=== PATIENT | female | born 1930 | race Caucasian/White ===

== ENCOUNTER 2016-10-20 16:04 | Inpatient (IN) | payer MEDICARE ==
[2016-10-20] MEDS ORDERED: MORPHINE SULFATE 2 MG/ML SYR ONE ×2 (16:30→16:56)
[2016-10-20] MEDS ORDERED: HOME MEDICATION LIST NEEDED 1 EA EACH MC ONE (17:27)
[2016-10-20] MEDS ORDERED: MORPHINE SULFATE 4 MG/ML SYR IV PRN ×2 (17:29→20:57)
[2016-10-20 17:47] LABS: BASOPHIL# 0.2 X 10^3uL (0.0-0.1); BASOPHILS 2.1 % (0.0-2.0); EOSINOPHILS 3.3 % (0.0-6.0); EOSINOPHILS# 0.4 X 10^3uL (0.0-0.4); HEMATOCRIT 41.1 % (36.0-48.0); HEMOGLOBIN 13.7 g/dL (12.0-16.0); LYMPHOCYTES 27.5 % (20.0-40.0); MEAN CELL VOLUME 90.5 fL (80.0-100.0); MEAN CORPUS. HGB CONCENTRATION 33.3 g/dL (32.0-36.0); MEAN CORPUSCULAR HEMOGLOBIN 30.2 pg (29.0-35.0); MEAN PLATELET VOLUME 8.2 fL (7.4-10.4); MONOCYTES 6.7 % (2.0-10.0); MONOCYTES# 0.7 X 10^3uL (0.2-1.0); NEUTROPHILS 60.4 % (54.0-75.0); NEUTROPHILS# 6.5 X 10^3uL (2.6-6.7); PLATELET COUNT 189 X 10^3uL (130-440); RED BLOOD COUNT 4.54 X 10^6uL (4.20-6.10); WHITE BLOOD COUNT 10.8 X 10^3uL (3.9-10.7)
[2016-10-20 17:56] LABS: BLOOD UREA NITROGEN 40 mg/dL (7-17); CALCIUM 8.9 mg/dL (8.4-10.2); CHLORIDE 111 mmol/L (98-107); CREATININE 1.2 mg/dL (0.5-1.0); GLUCOSE 110 mg/dL (70-100); POTASSIUM 4.1 mmol/L (3.5-5.1); SODIUM 140 mmol/L (137-145)
[2016-10-20 17:57] LABS: INR 1.1
--- NOTE | 2016-10-20 18:23 | ER NURSING DOCUMENTATION ---
Nurse's Notes [facility] Name:Jolene Castro Age:86 yrs Sex:Female :1930 Arrival Date:10/20/2016 Time:16:04 Bed6 Private MD:Prasad Hammer Diagnosis:Intertrochanteric Hip Fracture Presentation: 10/20 16:08 Presenting complaint: Patient states: mechanical ground level fall; right hip pain. nf Transition of care: patient was not received from another setting of care. Notified ED Physician of patient's arrival and CC Herbert Harrington notified. 16:08 Acuity: HUMAIRA 2 nf 16:08 Method Of Arrival: EMS: 410 nf 16:12 Care prior to arrival: Saline lock initiated. nf Triage Assessment: 16:10 General: Appears in no apparent distress, well nourished, well groomed, Behavior is nf pleasant. 16:10 Pain: Complains of pain in right hip and right femoral area Pain does not radiate. nf Neuro: No deficits noted. Cardiovascular: strong bilateral pedal pulses, both marked Rhythm is regular. Respiratory: No deficits noted. Breath sounds are clear bilaterally. GI: No deficits noted. Denies nausea, vomiting. Musculoskeletal: Circulation, motion, and sensation intact Capillary refill < 3 seconds Range of motion limited in right lower extremity other no obvious deformity; leg bent at hip and knee for comfort - worsening pain with movement of leg Tenderness present in right femoral area and right hip Denies. Injury Description: blunt trauma/mechanical ground level fall. Historical: - Allergies: PENICILLINS; - Home Meds: 1. Cerefolin oral 2. clopidogrel oral 3. losartan oral 4. Potassium Chloride Oral 5. Omeprazole Oral 6. levothyroxine oral 7. aspirin 81 mg oral tab once daily 8. flaxseed oil oral 9. Vitamin D Oral 10. iron 11. eye drops - PMHx: TIA; Hypertension; THYROID PROBLEM; - PSHx: toes; stents in eyes; - Tetanus: unknown. - Ebola Screening: : No symptoms or risks identified at this time. . - Immunization history: Flu Vaccine < 1 year. - Social history: Smoking status: Patient states was never smoker of tobacco. Patient uses alcohol occasionally. Screenin:11 Infectious Disease Risk None. Abuse screen: Denies threats or abuse. Nutritional nf screening: No deficits noted. Assessment: 16:11 See Triage Assessment done by same RN. nf Vital Signs: 16:11 BP 149 / 67; Pulse 73; Resp 16; Temp 98.0(O); Pulse Ox 96% on R/A; Weight 68.04 kg; nf Height 5 ft. 6 in. (167.64 cm); Pain 5/10; 17:30 BP 162 / 68; Pulse 63; Resp 12; Pulse Ox 99% on 2 lpm NC; Pain 3/10; nf 16:11 Body Mass Index 24.21 (68.04 kg, 167.64 cm) nf ED Course: 16:05 Patient arrived in ED. arc 16:05 Prasad Hammer is Private Physician. arc 16:07 Presley Godinez MD is Attending Physician. 16:08 Juana Delgado, RN is Primary Nurse. nf 16:09 Triage completed. nf 16:11 Arm band placed on Bed in low position Call Light in Reach Gowned HOB Elevated Side nf rails up x1. Family accompanied patient. 16:11 Valuables Remains with patient. Door closed. Noise minimized. Lights dimmed. Moved to private room. Verbal reassurance given. Warm blanket given. Pillow given. position of comfort. Diet: Patient is NPO. 16:30 Pulse ox on. NIBP On - RN Monitoring Only. nf 16:31 Oxygen Oxygen administration via nasal cannula @ 2L/min. nf 17:12 EKG done. (by ED staff). Reviewed by Presley Godinez MD. arc 17:25 Cristina Arreola MD is Admitting Physician. 17:33 Port Xray Completed. pm1 17:34 EKG attached nf 17:39 EKG attached nf 17:45 Labs drawn. By EMS Sent per order to lab. nf 17:45 Morin cath inserted Patient tolerated well inserted by [facility] nurse Kamilla. nf Administered Medications: 16:30 Drug: morphine 2 mg; Route: IVP; Site: left hand; nf 16:53 Follow up: Response: No change in condition nf 16:52 Drug: morphine 2 mg; Route: IVP; Site: left hand; nf 17:25 Follow up: Response: Pain is decreased nf Outcome: 17:27 Decision to Admit by Provider. 17:55 Admitted to Med/surg accompanied by nurse, family with patient, via stretcher, with nf oxygen, with chart. 17:55 Condition: stable 17:55 Report given to Emiliano Nelson RN, bedside report 17:55 Discharge Assessment: Patient awake, alert and oriented x 3. No cognitive and/or functional deficits noted. Patient verbalized understanding of disposition instructions. 17:55 Discharge instructions given to patient, family, Instructed on need to admit Demonstrated understanding of instructions, surgery expected tomorrow 18:22 Patient left the ED. nf Signatures: Juana Delgado RN RN Presley Miller MD MD jm McBride, Philisha pm1 Meenu Mcmanus, Ivan Reg arc
--- NOTE | 2016-10-20 18:23 | ER PHYSICIAN DOCUMENTATION ---
Physician Documentation [facility] Name:Jolene Castro Age:86 yrs Sex:Female :1930 Arrival Date:10/20/2016 Time:16:04 Bed6 Private MD:Prasad Hammer ED, John Disposition: 10/20/16 17:27 Admit ordered for Cristina Arreola. Preliminary diagnosis is Intertrochanteric Hip Fracture. - Bed requested for Medical/Surgical. - Condition is Fair. - Problem is new. - Symptoms are unchanged. 23 HR OBS Yes HPI: 10/20 16:13 This 86 yrs old Female presents to ER via EMS with complaints of Hip Injury. talisha 16:13 The patient or guardian reports an injury, pain. sustained from a fall, while walking. talisha The complaints affect the right femoral area and right hip. Onset: The symptom(s)/episode began/occurred just prior to arrival. Modifying factors: the symptoms are aggravated by any movement. Associated signs and symptoms: Pertinent negatives: abdominal pain, chest pain. Severity of symptoms: in the emergency department the symptoms are unchanged. The patient has not experienced similar symptoms in the past. The patient has not recently seen a physician. Pt slipped and fell on gravel while walking to her mailbox. . Historical: - Allergies: PENICILLINS; - Home Meds: 1. Cerefolin oral 2. clopidogrel oral 3. losartan oral 4. Potassium Chloride Oral 5. Omeprazole Oral 6. levothyroxine oral 7. aspirin 81 mg oral tab once daily 8. flaxseed oil oral 9. Vitamin D Oral 10. iron 11. eye drops - PMHx: TIA; Hypertension; THYROID PROBLEM; - PSHx: toes; stents in eyes; - Tetanus: unknown. - Ebola Screening: : No symptoms or risks identified at this time. . - Immunization history: Flu Vaccine < 1 year. - Social history: Smoking status: Patient states was never smoker of tobacco. Patient uses alcohol occasionally. ROS: 16:16 Constitutional: Negative for fever. jm 16:16 ENT: Negative for rhinorrhea, sinus congestion, sinus pain, sore throat. 16:16 Neck: Negative for rash. 16:16 Cardiovascular: Negative for chest pain, palpitations. 16:16 Respiratory: Negative for cough, shortness of breath. 16:16 Abdomen/GI: Negative for abdominal pain. 16:16 Back: Negative for injury or acute deformity. 16:16 MS/extremity: Positive for injury or acute deformity, decreased range of motion, of the right hip and right femoral area. 16:16 Skin: Negative for abscesses, avulsion. 16:16 Neuro: Negative for numbness, tingling. Exam: 16:16 Constitutional: The patient appears alert, awake. 16:16 Eyes: Periorbital structures: appear normal, Conjunctiva: normal. 16:16 ENT: Nose: is normal, Voice: is normal. 16:16 Neck: C-spine: appears grossly normal, vertebral tenderness, is not appreciated, Trachea: is midline with no obvious abnormalities. 16:16 Cardiovascular: Rate: normal, Rhythm: regular. 16:16 Respiratory: Respirations: normal, Breath sounds: are normal. 16:16 Abdomen/GI: Bowel sounds: normal, Palpation: abdomen is soft and non-tender. 16:16 Back: CVA tenderness, is absent, vertebral tenderness, is not appreciated. 16:16 Musculoskeletal/extremity: Extremities: grossly normal except: noted in the right hip: decreased ROM, pain, tenderness, ROM: limited active range of motion due to pain, limited passive range of motion due to pain, in the right hip, Pulses: are normal with no appreciated deficits, Sensation intact. 16:16 Skin: Appearance: Color: pink, injury, is not appreciated. 16:16 Neuro: Mentation: is normal, Memory: is normal. 16:16 Psych: Behavior/mood is pleasant, cooperative, Affect is calm. Vital Signs: 16:11 BP 149 / 67; Pulse 73; Resp 16; Temp 98.0(O); Pulse Ox 96% on R/A; Weight 68.04 kg; nf Height 5 ft. 6 in. (167.64 cm); Pain 5/10; 17:30 BP 162 / 68; Pulse 63; Resp 12; Pulse Ox 99% on 2 lpm NC; Pain 3/10; nf 16:11 Body Mass Index 24.21 (68.04 kg, 167.64 cm) nf MDM: 16:07 Patient medically screened. 16:24 Differential diagnosis: hip fracture. Data reviewed: vital signs, nurses notes, old medical records, lab test result(s), radiologic studies. 17:23 Data reviewed: and as a result, I will admit patient. Test interpretation: by ED jm physician or midlevel provider: plain radiologic studies, ECG. Counseling: I had a detailed discussion with the patient and/or guardian regarding: the historical points, exam findings, and any diagnostic results supporting the discharge/admit diagnosis, lab results, radiology results, the need for further work-up and treatment in the hospital. ECG:. Physician consultation: Cristina Arreola MD regarding admission, and will see patient immediately, later today. ED course: Pt w intratrochanteric hip fx on the R that will need surgery. Dr. Whitley updated and he or Dr. Payan will see pt in the AM. Dr Arreola will admit and clear for surgery. . 17:34 EKG attached nf 17:39 EKG attached nf 10/20 17:50 Order name: CBC AUTO DIF, MDIF/RMOR IF IND; Complete Time: 18:37 EDMS 10/20 17:57 Order name: BASIC METABOLIC PANEL; Complete Time: 18:37 EDMS 10/20 17:58 Order name: PROTIME/INR; Complete Time: 18:37 EDMS 10/20 16:07 Order name: Pulse Ox Continuous; Complete Time: 16:15 10/20 16:16 Order name: Oxygen; Complete Time: 16:16 nf 10/20 17:03 Order name: EKG - 12 Lead; Complete Time: 17:03 nf 10/20 17:32 Order name: Morin; Complete Time: 17:32 nf EC:23 Rhythm is irregular with Left bundle branch block. QRS interval is normal. QT interval jm is normal. No Q waves. T waves are Normal. No ST changes noted. Dispensed Medications: 16:30 Drug: morphine 2 mg; Route: IVP; Site: left hand; nf 16:53 Follow up: Response: No change in condition nf 16:52 Drug: morphine 2 mg; Route: IVP; Site: left hand; nf 17:25 Follow up: Response: Pain is decreased nf Signatures: Juana Delgado RN RN Presley Miller MD MD jm
[2016-10-20] MEDS ORDERED: NORMAL SALINE 250 ML IV ONE ×2 (18:58→20:43)
--- NOTE | 2016-10-20 19:42 | RADIOLOGY REPORT ---
HISTORY: Preoperative evaluation, hip fracture. TECHNIQUE: Portable AP semierect view of the chest. COMPARISON: None. FINDINGS: Nonspecific diffuse bilateral interstitial opacities are present, which may reflect chronic interstit ial lung disease. No consolidation, pleural effusion or pneumothorax is identified. The heart and mediastinal silhouette are normal. The bones are diffusely osteopenic. IMPRESSION: Mild nonspecific diffuse bilateral interstitial opacities. Final Electronic Signature: This report was electronically signed by Dave Gonzalez MD on 10/20/2016 7 :40 PM. liss /
[2016-10-20] MEDS: TIMOLOL LEFTEYE SCH (20:40)
[2016-10-20] MEDS: DORZOLAMIDE LEFTEYE SCH (20:40)
[2016-10-20] MEDS: [UNRECOGNIZED DRUG - OTHER] LEFTEYE SCH (20:40)
[2016-10-20] MEDS ORDERED: POTASSIUM CHLORIDE/NS 1,000 ML IV ONE (20:44)
[2016-10-20] MEDS: MORPHINE SULFATE 4 MG/ML SYR IV PRN ×2 (21:05→21:45)
[2016-10-21] MEDS ORDERED: POTASSIUM CHLORIDE/NS 1,000 ML IV SCH
[2016-10-21] MEDS: MORPHINE SULFATE 4 MG/ML SYR IV PRN ×2 (01:11→08:32)
--- NOTE | 2016-10-21 03:36 | HISTORY & PHYSICAL ---
DATE OF ADMISSION: 10/20/16 PRIMARY CARE PROVIDER: Emiliano Hammer at [facility]. CARDIOLOGY: Dr. Montrell Miranda. CHIEF COMPLAINT: Fall. HISTORY OF PRESENT ILLNESS: This is an 86-year-old white female with a history of hypertension, prior TIA and hyperlipidemia, who was walking to get her mail today with her son and slipped on the gravel and sustained a fall. She fell onto her right bottom and hip. No closed head injury, no loss of consciousness. She was unable to get up and 911 was called. She denies any preceding chest pain, shortness of breath, palpitations, diaphoresis, nausea or vomiting. Her pain is now rated 7/10. REVIEW OF SYSTEMS: She has not had any recent fevers, chills or sweats. She has had a mild cough which is dry which she states is related to her allergies. She has some runny nose in the mornings but no sore throat. She does not wear home oxygen. She does have some issues with her balance but she has not had any other falls for 3 years or more. She had a history of a heart murmur as a child. She currently has no abdominal pain. She states she occasionally gets some postprandial abdominal pain after an evening meal. No dysuria. No history of nausea or vomiting. Her gastroesophageal reflux disease is well controlled on medications. No bloody stools. She does get some occasional bilateral leg cramps. No h/o CAD or CHF. PAST MEDICAL HISTORY 1. Hypertension. 2. Prior TIA. 3. Hyperlipidemia. 4. Chronic renal insufficiency with a history of creatinine 2.0. 5. History of abnormal EKG with left bundle branch block morphology. 6. History of glaucoma. 7. History of cataract. 8. Gastroesophageal reflux disease. 9. Hypothyroidism. PAST SURGICAL HISTORY 1. Bilateral cataracts. 2. Glaucoma procedure where she has had bilateral stents in her eyes placed which are still in place. She has had some hammertoe procedures. MEDICATIONS Plavix 75 mg daily. Losartan potassium 50 mg daily. Potassium powder 20 mEq daily. Omeprazole 40 mg daily. Levothyroxine 112 mcg daily. Baby aspirin 81 mg daily. Flax seen oil 1000 mg daily. Vitamin D 1000 IU daily. Iron 65 mg daily. Dorzolamide/timolol ophthalmic drops, 1 drop left eye twice daily. Cerefolin NAC 20 mg daily. ALLERGIES: Mushrooms cause nausea. SOCIAL HISTORY: She is . She lives alone. She has 3 children. One son has . Her son and daughter live here in town. No tobacco use. Occasional alcohol use. She no longer drives secondary to her poor vision. FAMILY HISTORY: Son at the age of 61 with metastatic colon cancer. Mom at approximately 85. She had glaucoma and cataracts. Her dad at approximately the age of 85, had cataracts. She had a brother who at the age of 75 with acute myocardial infarction. She has a brother with Alzheimers and another brother who has had a traumatic brain injury and has seizures. DATA: 06/08/12: Bilateral carotid artery ultrasounds which were negative. May 2012: Holter monitor which was negative. She has had a prior normal myocardial perfusion scan. Sodium 140, potassium 4.1, chloride 111, bicarb 20, BUN 40, creatinine 1.2, glucose 110, calcium 8.9. Coagulation studies: PT is 14.9, INR is 1.1. CBC: White count is 10.8, hemoglobin 13.7, hematocrit 41.1, platelets 189. EKG: Normal sinus rhythm 60, left axis deviation, left bundle branch block, prolonged ME interval. No prior EKGs to compare to, however, it is noted in her cardiology consultation that she has no left bundle branch block. IMAGING: Chest x-ray single view: She appears to have fluid overload vs chronic interstitial changes. Will await official radiology report which has been requested. Hip x-rays revealed a right intertrochanteric fracture. PHYSICAL EXAMINATION VITAL SIGNS: In the emergency room temperature 98.0, respiratory rate 16, pulse 73, blood pressure 149/67, 96% on room air. GENERAL: This is a very pleasant elderly female who appears much younger than her stated age, in moderate distress secondary to pain, particularly with movement. HEENT: Her sclerae are clear. Her pupils are equal, round reactive to light. Extraocular movements are intact. Her TMs are clear. Her nares are clear. Her oropharynx is clear. NECK: Her neck is supple, no carotid bruits. No lymphadenopathy. No jugular venous distention. LUNGS: Good aeration throughout and clear. HEART: Distant, bradycardic in the 50s. Regular rhythm without any murmurs, rubs or gallops. ABDOMEN: Soft, nontender, nondistended with good bowel sounds and no masses or hepatosplenomegaly. EXTREMITIES: Warm. Her right lower extremity is externally rotated and shortened. She has good dorsalis pedis and posterior tibial pulses. No cyanosis, clubbing or edema. NEUROLOGIC: Alert and oriented x3. Cranial nerves 2-12 are grossly intact without focal deficits. Her motor sensation and DTRs are intact. ASSESSMENT: This is an 86-year-old white female who is unremarkably healthy, who presents with right intertrochanteric hip fracture. PLAN 1. Fluids, electrolytes and nutrition. Regular diet. NPO after midnight. Will then begin IV fluids. Her electrolytes are stable. 2. Orthopedics. Orthopedic surgeon Dr. Florentino Whitley has been consulted over the phone by emergency room physician. Either Dr. Whitley or Dr. Payan will see the patient tomorrow and most likely will perform surgery. She is medically cleared for her surgery. She is followed by Cardiology at least once yearly. 3. Cardiovascular. The patient with history of hypertension, hyperlipidemia and prior TIA. Her blood pressure is stable. Will continue baby aspirin but will hold Plavix. 4. Respiratory. The patient without any underlying respiratory issues. Will await official Radiology reading of chest x-ray. She is on oxygen now only because she is receiving narcotics for pain control. 5. Renal. The patient with history of chronic renal insufficiency. Prior history of creatinine 2.0. Her current creatinine is stable at 1.2. Avoid nephrotoxic agents. 6. Disposition. I have had a discussion with the patient. She desires to be full cor/full tube. She will be admitted as an inpatient. Anticipate that she will need a 2-3 day hospital stay and anticipate she will most likely need a swing bed stay. I have discussed with her son and [id number] and they elected for her to be able to maintain her independence and return to living independently at home. Copy to Arnulfo Courtney, Dr. Montrell DAVIS
[2016-10-21 06:25] LABS: BASOPHILS 0.5 % (0.0-2.0); EOSINOPHILS 0.8 % (0.0-6.0); EOSINOPHILS# 0.1 X 10^3uL (0.0-0.4); HEMATOCRIT 31.4 % (36.0-48.0); HEMOGLOBIN 10.5 g/dL (12.0-16.0); LYMPHOCYTES 25.2 % (20.0-40.0); LYMPHOCYTES# 2.3 X 10^3uL (0.8-3.8); MEAN CELL VOLUME 89.5 fL (80.0-100.0); MEAN CORPUS. HGB CONCENTRATION 33.5 g/dL (32.0-36.0); MEAN PLATELET VOLUME 8.4 fL (7.4-10.4); MONOCYTES 11.7 % (2.0-10.0); MONOCYTES# 1.1 X 10^3uL (0.2-1.0); NEUTROPHILS 61.8 % (54.0-75.0); NEUTROPHILS# 5.8 X 10^3uL (2.6-6.7); PLATELET COUNT 164 X 10^3uL (130-440); RED BLOOD COUNT 3.51 X 10^6uL (4.20-6.10); RED CELL DISTRIBUTION WIDTH 13.7 % (11.5-14.5); WHITE BLOOD COUNT 9.3 X 10^3uL (3.9-10.7)
[2016-10-21] MEDS ORDERED: LEVOTHYROXINE 112 MCG TABLET PO SCH (06:30)
[2016-10-21 06:38] VITALS: BP 90/58; PULSE 71; RESP 16; TEMP 98.8; O2SAT 93
[2016-10-21 06:48] LABS: BLOOD UREA NITROGEN 40 mg/dL (7-17); CALCIUM 8.4 mg/dL (8.4-10.2); CHLORIDE 113 mmol/L (98-107); CREATININE 1.3 mg/dL (0.5-1.0); GLUCOSE 155 mg/dL (70-100); POTASSIUM 4.6 mmol/L (3.5-5.1); SODIUM 139 mmol/L (137-145)
[2016-10-21] MEDS ORDERED: ONDANSETRON HCL 4 MG/2 ML VIAL IV PRN (06:49)
[2016-10-21] MEDS: ONDANSETRON HCL 4 MG/2 ML VIAL ONE (06:50)
[2016-10-21] MEDS ORDERED: PANTOPRAZOLE 40 MG TABLET PO SCH (07:15)
--- NOTE | 2016-10-21 08:05 | DC SUMMARY: IM Note ---
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 She was brought by ambulance to [facility] and admitted, in anticipation of surgery on the hip today here. This morning, however, anesthesia felt the patient was too high risk for [facility] because she is on Plavix, which has been held since admission. She will be transferred today to Dr. Bills at [facility] for surgery. She would like to return to [facility] for rehab. The patient's chronic medical problem hypertension, hyperlipidemia, and chronic renal insufficiency, are all stable. She is on the Plavix because of a history of a TIA about 6 years ago. She was seen by cardiology, Dr. Miranda, in March 2016 and was doing well. She has no known coronary artery disease. She has been nothing by mouth since midnight. - Time Spent with Patient Total time spent providing and/or coordinating discharge services: Discharge Overall discharge status: stable Disposition: [facility] 1. Medical reason for no anticoagulation order on D/C?: Contraindicated 2. Medical reason for no anticoag overlap on D/C?: Contraindicated (Transferred to [facility] to Dr. Bills) Discharge Summary Data - Medication History Medication History: Home Medications Cholecalciferol [Vitamin D*] 1,000 unit PO DAILY 10/20/16 Clopidogrel Bisulfate [Plavix*] 75 mg PO DAILY 10/20/16 Dorzolamide/Timolol Ophth [Cosopt Eye Drops*] 1 drop LEFTEYE BID 10/20/16 Ferrous Sulfate [Ferrous Sulfate*] 325 mg PO DAILY@1700 10/20/16 Levothyroxine [Synthroid*] 112 mcg PO BEFORE BREAKFAST 10/20/16 Lmfol Ca/Acetyl/Mb12/Algal Oil [Cerefolin Nac Caplet] 1 tab PO DAILY 10/20/16 Losartan Potassium [Cozaar*] 50 mg PO DAILY 10/20/16 Omeprazole 20 mg PO DAILY 10/20/16 Potassium Chloride Powder [Klor-Con Powder Packet] 20 meq PO DAILY 10/20/16 aspirin CHEW [Aspirin Chew*] 81 mg PO DAILY 10/20/16 Inpatient Medications 10/20/16 21:00 Dorzolamide/Timolol Ophth [Cosopt Eye Drops] 1 drop LEFTEYE BID 10/20/16 21:04 Morphine Sulfate 2 - 4 mg IV Q2H PRN 10/21/16 00:00 Potassium Chloride/Ns [KCl 20 Meq in Ns 1L] 1,000 ml IV CONT 10/21/16 06:30 Levothyroxine [Synthroid] 112 mcg PO BEFORE BREAKFAST 10/21/16 06:49 Ondansetron HCl [Zofran] 4 mg IV Q6H PRN 10/21/16 07:15 Pantoprazole [Protonix] 40 mg PO BEFORE BREAKFAST 10/21/16 09:00 Cholecalciferol [Vitamin D3] 1,000 unit PO DAILY Lmfol Ca/Acetyl/Mb12/Algal Oil [Cerefolin Nac Caplet] 1 tab PO DAILY Losartan Potassium [Cozaar] 50 mg PO DAILY Potassium Chloride Powder [Klor-Con Powder Packet] 20 meq PO DAILY aspirin CHEW [Baby Aspirin Chewable] 81 mg PO DAILY 10/21/16 17:00 Ferrous Sulfate 325 mg PO DAILY@1700 Procedures and tests throughout hospitalization: Completed Lab Orders 10/20/16 17:35 ptt [PARTIAL THROMBOPLASTIN TIME] [HEM] Stat 10/21/16 06:00 BMP [BASIC METABOLIC PANEL] [CHEM] AMDRAW CBC AUTO DIF, MDIF/RMOR IF IND [HEM] AMDRAW Pending Orders 10/20/16 18:53 NPO After midnight 0000 10/20/16 19:00 Change from Observation to Inpatient Routine 10/20/16 19:29 Intake and Output QSHIFT I&O 10/20/16 21:00 Dorzolamide/Timolol Ophth [Cosopt Eye Drops] 1 drop LEFTEYE BID 10/20/16 21:04 Morphine Sulfate 2 - 4 mg IV Q2H PRN 10/21/16 00:00 Potassium Chloride/Ns [KCl 20 Meq in Ns 1L] 1,000 ml IV CONT 10/21/16 00:27 Medications with water . 10/21/16 06:30 Levothyroxine [Synthroid] 112 mcg PO BEFORE BREAKFAST 10/21/16 06:49 Ondansetron HCl [Zofran] 4 mg IV Q6H PRN 10/21/16 07:15 ADD ON LAB TEST [MULTI] Routine Pantoprazole [Protonix] 40 mg PO BEFORE BREAKFAST 10/21/16 09:00 Cholecalciferol [Vitamin D3] 1,000 unit PO DAILY Lmfol Ca/Acetyl/Mb12/Algal Oil [Cerefolin Nac Caplet] 1 tab PO DAILY Losartan Potassium [Cozaar] 50 mg PO DAILY Potassium Chloride Powder [Klor-Con Powder Packet] 20 meq PO DAILY aspirin CHEW [Baby Aspirin Chewable] 81 mg PO DAILY 10/21/16 17:00 Ferrous Sulfate 325 mg PO DAILY@1700 10/21/16 Breakfast Nothing By Mouth [DIET] Labs on day of discharge: Labs from last 24 hours 10/21/16 06:00 WBC 9.3 RBC 3.51 L Hgb 10.5 L Hct 31.4 L MCV 89.5 MCH 30.0 MCHC 33.5 RDW 13.7 Plt Count 164 MPV 8.4 Neutrophils % 61.8 Lymphocytes % 25.2 Eosinophils % 0.8 Basophils % 0.5 Neutrophils # 5.8 Lymphocytes # 2.3 Monocytes 11.7 H Monocytes # 1.1 H Eosinophils # 0.1 Basophils # 0.0 Sodium 139 Potassium 4.6 Chloride 113 H Carbon Dioxide 18 L BUN 40 H Creatinine 1.3 H GFR Calculation Not Reportable Glucose 155 H Calcium 8.4 IM: Discharge Physical Exam - I&O/Vital Signs I&O: Intake & Output 10/20/16 10/21/16 10/21/16 21:59 05:59 13:59 Intake Total 1357 Output Total 450 250 Balance -450 1107 Weight 71.214 kg Intake: IV 1257 Right Hand 1257 Oral 100 Output: Urine 450 250 Other: Urine Appearance Clear Clear Urine Color Yellow Yellow Voiding Method Indwelling Catheter Indwelling Catheter Vital Signs: Last Vital Signs Temp 37.1 C 10/21/16 06:37 Pulse 71 10/21/16 06:37 Resp 16 10/21/16 06:37 BP 90/58 10/21/16 06:37 Pulse Ox 93 10/21/16 06:37 Oxygen Flow Rate 2 Oxygen Delivery Method Nasal Cannula - Constitutional General appearance: Present: average body habitus - Head Head exam: Present: atraumatic - ENT ENT exam: Present: mucous membranes dry - Respiratory Respiratory exam: Present: clear - Cardiovascular Cardiovascular exam: Present: RRR - GI/Abdominal GI/Abdominal exam: Present: soft. Absent: tenderness - Extremities Exam Extremities exam: Present: tenderness (R hip). Absent: edema - Neurological Exam Neurological exam: Present: oriented X3, other (at bedrest) - Psychiatric Psychiatric exam: Present: normal mood - Allied Health Notes Allied health notes reviewed: nursing Allied health notes reviewed: nursing
[2016-10-21] MEDS: DORZOLAMIDE LEFTEYE SCH (08:14)
[2016-10-21] MEDS: TIMOLOL LEFTEYE SCH (08:14)
[2016-10-21] MEDS: [UNRECOGNIZED DRUG - OTHER] LEFTEYE SCH (08:14)
[2016-10-21] MEDS ORDERED: POTASSIUM CHLORIDE 20 MEQ PO SCH (09:00)
[2016-10-21] MEDS ORDERED: [UNRECOGNIZED DRUG - OTHER] PO SCH (09:00)
[2016-10-21] MEDS ORDERED: ACETYL PO SCH (09:00)
[2016-10-21] MEDS ORDERED: LOSARTAN POTASSIUM 50 MG TABLET PO SCH (09:00)
[2016-10-21] MEDS ORDERED: CHOLECALCIFEROL 1,000 UNIT CAPSULE PO SCH (09:00)
[2016-10-21] MEDS ORDERED: ALGAL OIL PO SCH (09:00)
[2016-10-21] MEDS ORDERED: FENTANYL 250 MCG/5 ML VIAL ONE (12:29)
--- NOTE | 2016-10-21 15:45 | CONSULTATION ---
DATE OF CONSULTATION: 10/21/16 REFERRING PHYSICIAN: Dr. Ramon. CHIEF COMPLAINT: Broken right hip. Dear Dr. Ramon, Thank you for asking me to evaluate this patient. As your know, she is an 86- year-old female who fell yesterday evening, landing on her right hip and sustaining a fracture of the right proximal femur. She was admitted to the hospital with an intertrochanteric fracture of the proximal femur and due to the clearly unstable nature of her fracture we were called for consultation. She denies any other injuries associated with her fall. PAST MEDICAL HISTORY: Her past medical history is otherwise remarkable for 1. Hypertension. 2. Hyperlipidemia. 3. Chronic renal insufficiency. 4. Hypothyroidism. 5. Prior TIA. MEDICATIONS Plavix. Losartan. Potassium supplements. Omeprazole. Levothyroxine. Baby aspirin. Vitamin supplements. ALLERGIES: No known drug allergies. FAMILY HISTORY: Noncontributory. SOCIAL HISTORY: The patient lives independently, and she is a nonsmoker. REVIEW OF SYSTEMS: Review of systems is negative for a syncopal or near syncopal episode associated with her fall. She simply tripped. She has not had any chest pain or shortness of breath and the remainder of review of systems is otherwise noncontributory. PHYSICAL EXAMINATION GENERAL: A well-appearing, very pleasant senior female in mild distress secondary to pain, alert and oriented times 3. PHYSICAL EXAMINATION OF THE RIGHT LOWER EXTREMITY: Reveals that the extremity does on the appear to be malrotated but is somewhat shortened. She does have a 2+ dorsalis pedis pulse and sensation intact throughout to light touch. She has mild swelling in the proximal thigh and is tender to palpation in that area as well. X-RAY EVALUATION: Plain radiographs of the hip reveal a 3 part intertrochanteric fracture of the right proximal femur with minimal angulation of the primary fragments, but with a posterior medial fragment that is about 1 cm displaced. ASSESSMENT: Intertrochanteric fracture of the right proximal femur as noted above. PLAN/RECOMMENDATIONS: Due to the clearly unstable nature of this fracture, the patient will require internal fixation. We actually discussed this with her and began making plans for performing fixation using an intramedullary device. However, upon our evaluation and discussion with the patient it was confirmed that she is on Plavix and aspirin. Once I discussed that with the anesthesiologist, he felt that it was not safe to proceed with surgery at this time at this facility due to the high potential for significant blood loss and limited availability of blood products here. Also the option of having her wait several days for her surgery in order to let the effects of the Plavix smith off was not an acceptable option. Therefore the patient was transferred to a larger medical facility [place]. Thank you again for asking me to evaluate this patient. SUSAN
[2016-10-21] MEDS ORDERED: FERROUS SULFATE 325 MG TABLET PO SCH (17:00)
--- NOTE | 2016-10-22 17:52 | RADIOLOGY REPORT ---
Two views of the right hip demonstrate acute three-part intertrochanteric fracture. There is mild narrowing of the joint space of the right hip. Incidentally noted are significant degenerative changes of both sacroiliac joints. IMPRESSION: Three-part right intertrochanteric hip fracture. MTDD
== END 2016-10-21 08:26 | disposition short-term general hospital (02) | DRG 536 ==
LOC: ER 16:04 → OBSVTOIN 17:48 → IN 17:48
PROVIDERS: ADMIT Family Medicine; ATTEND Family Medicine
DX: S72.141A Displaced intertrochanteric fracture of right femur, initial encounter for closed fracture (principal); W01.0XXA Fall on same level from slipping, tripping and stumbling without subsequent striking against object, initial encounter; Z86.73 Personal history of transient ischemic attack (TIA), and cerebral infarction without residual deficits; I12.9 Hypertensive chronic kidney disease with stage 1 through stage 4 chronic kidney disease, or unspecified chronic kidney disease; N18.9 Chronic kidney disease, unspecified; E78.5 Hyperlipidemia, unspecified; K21.9 Gastro-esophageal reflux disease without esophagitis; E03.9 Hypothyroidism, unspecified; Z79.02 Long term (current) use of antithrombotics/antiplatelets; Z79.899 Other long term (current) drug therapy; Z74.3 Need for continuous supervision
CPT/HCPCS: 36415; 51702; 71010; 73502; 80048; 83036; 85025; 85610; 85730; 93005; 93010; 96374; 99285; A0425; A0427; A0429; J2270; J2405; J3480; J7050